=== PATIENT | female | born 1930 | race Asian ===

== ENCOUNTER 2019-04-03 19:16 | Inpatient (IN) | payer MEDICARE, MEDICAID ==
[2019-04-03] MEDS ORDERED: NS 0.9% 1000 ML** 1,000 ML IV.FLUID IV ONE (20:54)
[2019-04-03] MEDS ORDERED: Piperacillin/Tazobac ADVAN(*) 3.375 GM in NS 0.9% 100 ML* 100 ML IVPB ONE (20:54)
[2019-04-03 21:24] LABS: ABS Basophils 0.1 10^3/ul (0-0.2); ABS Lymphocytes 0.3 10^3/ul (1.0-4.8); ABS Monocytes 0.6 10^3/ul (0-0.8); ABS Neutrophils 15.6 10^3/ul (1.5-7.7); Hematocrit 40 % (35-47); Hemoglobin 13.3 g/dL (12.0-16.0); Lymphocyte % 1.9 %; Mean Corpuscular HGB Conc 33 g/dL (31-36); Mean Corpuscular Hemoglobin 30 pg (27-31); Mean Corpuscular Volume 91 fL (80-97); Platelet Count 111 10^3/uL (150-450); Red Blood Count 4.42 10^6 /uL (3.70-4.87); Red Cell Distribution Width 14 % (10-15); White Blood Count 16.7 10^3/uL (3.5-10.8)
--- NOTE | 2019-04-03 21:24 | ED ---
HPI Febrile Illness - HPI Summary HPI Summary: This pt is an 88 y/o female, accompanied by daughter, presenting to [facility] c/o fever since today. Patient does not speak Maori and daughter is translating for the patient. Daughter reports this morning patient ate "very little food" during breakfast and lunch. Patient stated she felt cold today, despite being hot outside, and daughter notes she didn't realize pt had a fever. Daughter took the pt's temperature and it was 37.5 C, but daughter states she only put the thermometer for a short time. Daughter reports they have AC at home but pt does not want to use it as much. Additionally, pt began vomiting today, about 2 episodes of emesis describes as "just food." Denies cough, chest pain, SOB, burning or pain with urination. Pt reports feeling like acid is going up to her chest when palpating her abdomen. Her PCP is in [place]. PMHx includes constipation, osteoporosis, COPD. Pt takes stool softener for constipation. NKDA. Pt is a former doctor. Patient is from [place] and came to the [place] ago. Home Medications Medication Instructions Recorded Confirmed Type Calcitriol CAP* [Rocaltrol CAP*] 0.25 mg PO DAILY 04/03/19 04/03/19 History - History of Current Complaint Chief Complaint: EDFever Time Seen by Provider: 04/03/19 21:04 Hx Obtained From: Patient, Family/Microfilm Processor - Daughter Onset/Duration: Started Hours Ago, Still Present Timing: Lasting Hours Current Severity: Moderate Pain Intensity: 0 Aggravating Factors: Nothing Alleviating Factors: Nothing Associated Signs and Symptoms: Chills, Vomiting, Other: - NEGATIVE: cough, SOB, chest pain, burning or pain with urination. - Allergy/Home Medications Allergies/Adverse Reactions: Allergies Allergy/AdvReac Type Severity Reaction Status Date / Time No Known Allergies Allergy Verified 04/03/19 21:33 Home Medications: Home Medications Calcitriol CAP* [Rocaltrol CAP*] 0.25 mg PO DAILY 04/03/19 [History Confirmed 04/03/19] PMH/Surg Hx/FS Hx/Imm Hx Endocrine/Hematology History: Denies: Hx Diabetes Respiratory History: Reports: Hx Chronic Obstructive Pulmonary Disease (COPD) Musculoskeletal History: Reports: Hx Osteoporosis - Surgical History Surgical History: Yes Surgery Procedure, Year, and Place: Right shoulder replacement. Right leg fracture surgery Infectious Disease History: No Infectious Disease History: Denies: Traveled Outside the [place] in Last 30 Days - Family History Known Family History: Negative: Cardiac Disease - Social History Alcohol Use: None Substance Use Type: Reports: None Smoking Status (MU): Never Smoked Tobacco Review of Systems Positive: Fever, Chills Negative: Chest Pain Negative: Shortness Of Breath, Cough Positive: Vomiting, Nausea Negative: burning, dysuria All Other Systems Reviewed And Are Negative: Yes Physical Exam - Summary Physical Exam Summary: Appearance: Ill-appearing, moderate pain distress, thin. Patient complains of being cold. No tremors or shaking. Skin: Warm, color reflects adequate perfusion, dry Head: Normal Head/Face inspection, atraumatic Eyes: Conjunctiva clear ENT: Normal inspection Neck: Supple, no nodes, no JVD Respiratory: Lungs clear, normal breath sounds, no respiratory distress Cardio: RRR, No murmur, pulses normal, brisk capillary refill Abdomen: Soft, nontender Bowel sounds: Present Musculoskeletal: Strength Intact/ROM intact, no calf tenderness. Trace edema in bilateral legs. Psychological: Normal Neuro: Alert, muscle tone normal, no focal deficit Triage Information Reviewed: Yes Vital Signs On Initial Exam: Initial Vitals Temp Pulse Resp BP Pulse Ox 101.1 F 106 20 174/95 94 04/03/19 19:25 04/03/19 19:25 04/03/19 19:25 04/03/19 19:25 04/03/19 19:25 Vital Signs Reviewed: Yes Diagnostics - Vital Signs Vital Signs Temp Pulse Resp BP Pulse Ox 04/03/19 19:25 101.1 F 106 20 174/95 94 - Laboratory Result Diagrams: 04/03/19 21:15 04/03/19 21:16 Lab Statement: Any lab studies that have been ordered have been reviewed, and results considered in the medical decision making process. - Radiology Chest XR Radiology Interpretation Completed By: ED Physician Summary of Radiographic Findings: No acute disease. Right shoulder replacement. Re-Evaluation - Re-Evaluation First Eval Re-Evaluation Time: 22:01 Change: Unchanged Comment: Discussed plan with family members. They agree to admission and sepsis protocol. No new symptoms. Course/Dx - Course Assessment/Plan: Pt is an 88 y/o female, accompanied by daughter, presenting to [facility] c/o fever since today. Patient does not speak Maori and daughter is translating for the patient. Daughter took the pt's temperature and it was 37.5 C today, but daughter states she only put the thermometer for a short time. Pt began vomiting today, about 2 episodes of emesis describes as "just food.". Pt s medications reviewed this visit. Nurses notes reviewed. High blood pressure noted. Lab results remarkable for WBC of 16.7, glucose is 168, CRP is 103.27. Urinalysis shows 1+ protein, 2+ blood, 3+ leukocyte esterase, 3+ WBC, 3 + RBC, 1+ bacteria. Sepsis protocol was initiated. In the ED course the pt was given IV fluids 30 mL/kg, Zosyn, acetaminophen. Discussed the case with Dr. Willson, hospitalist, who accepted the pt for admission. - Provider Notifications Discussed Care Of Patient With: Malina Willson - hospitalist Time Discussed With Above Provider: 22:10 Instructed by Provider To: Admit As Inpatient - Critical Care Time Critical Care Time: 30-74 min Discharge - Sign-Out/Discharge Documenting (check all that apply): Patient Departure - Admit to [facility] Patient Received Moderate/Deep Sedation with Procedure: No - Discharge Plan Condition: Stable Disposition: ADMITTED TO [facility] Referrals: Dinesh Saravia MD [Primary Care Provider] - - Billing Disposition and Condition Condition: STABLE Disposition: Admitted to [facility] - Attestation Statements Document Initiated by Scribe: Yes Documenting Scribe: Corina You Provider For Whom Scribe is Documenting (Include Credential): Swati Ford MD Scribe Attestation: Corina Brady, scribed for Swati Ford MD on 04/03/19 at 2227. Status of Scribe Document: Viewed
[2019-04-03 21:32] LABS: Activated Partial Thrombo Time 40.1 seconds (26.0-38.0); INR 0.96 (0.82-1.09)
[2019-04-03 21:41] LABS: Albumin/Globulin Ratio 1.4 (1-3); BUN/Creatinine Ratio 35.3 (8-20); C Reactive Protein 103.27 mg/L (<8.01); Calcium 9.6 mg/dL (8.6-10.3); EGFR African American 99.3 (>60); Globulin 2.9 g/dL (2-4); Potassium 3.4 mmol/L (3.5-5.0); Total Bilirubin 1.1 mg/dL (0.2-1.0); Total Protein 6.9 g/dL (6.4-8.9)
[2019-04-03 21:42] LABS: Troponin I 0.01 ng/mL (<0.04)
[2019-04-03 21:50] LABS: Urine Appearance Turbid; Urine Bacteria 1+ (Absent); Urine Bilirubin Negative (Negative); Urine Blood 2+ (Negative); Urine Color Yellow; Urine Glucose Negative (Negative); Urine Ketones Negative (Negative); Urine Nitrite Negative (Negative); Urine Protein 1+(30 mg/dL) (Negative); Urine Red Blood Cell 3+(>10/hpf) (Absent); Urine Specific Gravity 1.012 (1.010-1.030); Urine Urobilinogen Negative (Negative); Urine White Blood Cell 3+(>20/hpf) (Absent)
[2019-04-03] MEDS ORDERED: Acetaminophen TAB* 325 MG PO ONE (21:56)
[2019-04-03 22:30] LABS: Erythrocyte Sed Rate 22 mm/Hr (0-29)
[2019-04-03] MEDS ORDERED: Acetaminophen TAB* 325 MG PO PRN (23:00)
[2019-04-03] MEDS ORDERED: Ondansetron INJ* 2 MG/ML VIAL IV PRN (23:00)
[2019-04-03] MEDS ORDERED: NS 0.9% 1000 ML** 1,000 ML IV SCH (23:00)
[2019-04-03] MEDS ORDERED: Potassium Chlor TAB* 20 MEQ TAB.ER PO ONE (23:50)
[2019-04-04] MEDS: cefTRIAXone(*) 1 GM in NS 0.9% 50 ML* 50 ML IVPB SCH ×2 (01:27→23:24)
[2019-04-04] MEDS: Enoxaparin(*) 40 MG/0.4 ML SYR SUBCUT SCH ×2 (01:29→23:23)
--- NOTE | 2019-04-04 04:52 | HP ---
CC: Dr. Dinesh Saravia * HISTORY AND PHYSICAL: DATE OF ADMISSION: 04/03/19 PROVIDER: Rashawn Ramírez NP ATTENDING PHYSICIAN: Dr. Malina Willson * (dictated by Rashawn Ramírez NP). PRIMARY CARE PROVIDER: Dr. Dinesh Saravia. CHIEF COMPLAINT: Fever. HISTORY OF PRESENT ILLNESS: Ms. Handy is an 88-year-old female who presents to the ER today with concern for fever. Ms. Handy does not speak Hungarian at baseline and utilizes her [id number] to help translate. Per the patient and her daughter- in-law, last evening, Ms. Handy had subjective fever and chills overnight and states that she started to feel colder than usual in the middle of the night. There was also a slight cough, but she does have a history of bronchospasm. She woke up and felt a little bit better, but had poor appetite and ate very little food during breakfast and lunchtime. She continued to endorse feeling cold and chills. Later on during the day, she had 2 episodes of emesis and the qvdrrmod-[id number] checked her temperature and noted that she was very hot and that the temperature was close to 101. It was at that point she was brought her [id number]-[id number] in for further evaluation. There was no noted confusion, dizziness, weakness. Ms. Handy denies any chest pain or shortness of breath. She denies any abdominal pain, nausea, or diarrhea. She denies any hematuria or dysuria or any flank pain. Prior to today, she was feeling at her baseline with no new health concerns or complaints. Here in the ER, Ms. Handy was found to have a fever of 101.1 upon arrival. She had tachycardia and concerns for a white count of 16,700 as well as a CRP of 103 and a UA with bacteria, white blood cells, and leukocyte esterase. Given these findings, Hospital Medicine was consulted for admission. PAST MEDICAL HISTORY: Includes COPD, constipation, osteoporosis, and palpitations. HOME MEDICATIONS: 1. Colace p.r.n. 2. Calcitriol 0.25 mcg daily. 3. Glucosamine chondroitin supplement. ALLERGIES: No known drug allergies. FAMILY HISTORY: Reviewed and noncontributory. SOCIAL HISTORY: She denies any history of tobacco, alcohol, or recreational drug use. 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 She is and lives with her . Her son, Sharon Gregorio, is her surrogate decision maker in the event of emergency. REVIEW OF SYSTEMS: A 12-point review of systems was completed, all pertinent positives and negatives as per HPI. PHYSICAL EXAMINATION GENERAL: This is a mildly ill-appearing, elderly female seen lying in the bed, in no acute distress. VITAL SIGNS: Temperature 98.0, pulse rate 96, respiratory rate 21, blood pressure 142/88, and O2 saturation is 96% on room air. HEENT: Head is atraumatic, normocephalic. Face is symmetrical. Pupils are equal, round, and reactive to light. Extraocular movements are intact. Oral mucosa is somewhat dry, but no oropharyngeal erythema or exudate noted. NECK: Supple with full range of motion. Negative for nuchal rigidity. No JVD noted. No lymphadenopathy appreciated. LUNGS: Clear to auscultation bilaterally. CARDIAC: Normal S1 and S2. Heart sounds with regular rate and rhythm. No murmurs appreciated. There is trace bilateral lower extremity edema that is not pitting to the bilateral lower extremities. ABDOMEN: Soft, nontender, nondistended with normoactive bowel sounds. There is no rebound tenderness or guarding. There is no CVA tenderness. There is no suprapubic tenderness. MUSCULOSKELETAL: No clubbing or cyanosis. There is full range of motion in all 4 extremities. SKIN: Appears warm, dry, and intact. NEURO: She is alert and oriented to person, place, time, and situation. Responds appropriately. Follows commands. No focal deficits noted. LABORATORY DATA/DIAGNOSTIC STUDIES: CBC: WBC 16.7, hemoglobin 13.3, hematocrit 40, platelet count 111. ESR is 22. CMP: Sodium 134, potassium 3.4 , chloride 102, carbon dioxide 25, BUN 24, creatinine 0.68, glucose 68, lactic acid 0.9, calcium 9.6. Total bilirubin 1.10, AST 20, ALT 12, alk phos 49. Total CK 50, troponin 0.01. CRP 103.27. BNP 103. Albumin 4.0. Urinalysis shows 1+ protein, 2+ blood, negative nitrite, 3+ leukocyte esterase, 3+ wbc's, 3+ rbc's, and 1+ bacteria. Chest x-ray reviewed by this provider, no acute disease noted in the lung lamb. EKG reviewed shows sinus rhythm with some premature atrial complexes, but no significant ischemic changes. Old medical records were reviewed. ASSESSMENT AND PLAN: This is an 88-year-old female who presents today with concern for fever, possibly secondary to urinary source. She will be admitted under observation status and plan is as follows: 1. Urinary tract infection. Ms. Handy presents with a fever and concern for bacteria, leukocyte esterase in her urine. She received Zosyn in the ER. We will continue her on ceftriaxone until her culture results. 2. Sepsis. Ms. Handy meets sepsis diagnosis by SIRS criteria on admission with her 101.1 fever, tachycardia with rates in the 100s, increased respiratory rate of 22 to 33, [place] [address]. For qSOFA criteria, she meets criteria for sepsis by total bilirubin which is 1.1 as well as her platelet count which is 111. Based on the SIRS and SOFA criteria, she meets for sepsis protocol. She has been appropriately started on a broad-spectrum antibiotic, which we will narrow down to ceftriaxone for suspected urinary pathogen. She has received 1.5 L of fluid. Blood cultures have been ordered and drawn, results are pending. There is no lactic acidosis. We will continue to monitor the patient's response and adjust the plan of care appropriately. 2. History of constipation. Continue Colace. 3. History of osteoporosis. Continue Calcitriol. 4. FEN. She is ordered a regular diet. 5. DVT prophylaxis. Subcu Lovenox for a highest level of DVT risk assessment. 6. Code status: Full code. 7. Disposition: Anticipate discharge to home when medically stable. TIME SPENT: Approximately 60 minutes was spent on this admission with more than half the time spent [id number] with the patient obtaining history and physical, performing the physical examination, and reviewing the plan of care. Plan of care was also reviewed with my attending, Dr. Willson, who is in agreement. RASHAWN RAMÍREZ, AWAIS [id number]/[facility] #: [id number] JERRELL
[2019-04-04] MEDS ORDERED: Calcitriol CAP* 0.25 MCG PO SCH (09:00)
[2019-04-04] MEDS: Docusate CAP* 100 MG PO SCH (09:05)
[2019-04-04] MEDS: Calcitriol CAP* 0.25 MCG PO SCH (09:05)
[2019-04-04 09:10] LABS: Hematocrit 37 % (35-47); Mean Corpuscular HGB Conc 33 g/dL (31-36); Mean Corpuscular Hemoglobin 30 pg (27-31); Mean Corpuscular Volume 91 fL (80-97); Red Blood Count 4.02 10^6 /uL (3.70-4.87); Red Cell Distribution Width 13 % (10-15); White Blood Count 22.7 10^3/uL (3.5-10.8)
[2019-04-04 09:21] LABS: Albumin 3.4 g/dL (3.2-5.2); Calcium 8.9 mg/dL (8.6-10.3); Potassium 3.9 mmol/L (3.5-5.0); Total Bilirubin 0.8 mg/dL (0.2-1.0)
[2019-04-04 09:27] LABS: Albumin/Globulin Ratio 1.3 (1-3); EGFR African American 92.9 (>60); EGFR Non-African American 76.8 (>60); Globulin 2.7 g/dL (2-4); Total Protein 6.1 g/dL (6.4-8.9)
[2019-04-04 09:34] LABS: ABS Lymphocytes 0.8 10^3/ul (1.0-4.8); ABS Monocytes 0.8 10^3/ul (0-0.8); ABS Neutrophils 21.1 10^3/ul (1.5-7.7); Lymphocyte % 3.5 %; Mean Platelet Volume 7.6 fL (7.4-10.4); Platelet Count 96 10^3/uL (150-450)
[2019-04-04 10:22] LABS: TSH (Thyroid Stimulating Horm) 0.24 mcIU/mL (0.34-5.60)
--- NOTE | 2019-04-04 11:25 | PN ---
Subjective Date of Service: 04/04/19 Interval History: Patient is feeling somewhat tired today. Patient denies Fevers, but endorses chills. Patient denies dysuria, CP, SOB, N/V, abdominal pain, diarrhea. Patient has no history of UTI per daughter. History was obtained with daughter interpreting. Family History: Unchanged from Admission Social History: Unchanged from Admission Past Medical History: Unchanged from Admission Objective Active Medications: Acetaminophen (Tylenol Tab*) 650 mg PO Q4H PRN PRN Reason: FEVER/PAIN Last Admin: 04/04/19 01:47 Dose: 650 mg Calcitriol (Rocaltrol Cap*) 0.25 mcg PO DAILY [facility] Last Admin: 04/04/19 09:05 Dose: 0.25 mcg Docusate Sodium (Colace Cap*) 100 mg PO DAILY [facility] Last Admin: 04/04/19 09:05 Dose: 100 mg Enoxaparin Sodium (Lovenox(*)) 40 mg SUBCUT Q24H [facility] Last Admin: 04/04/19 01:29 Dose: 40 mg Ceftriaxone Sodium 1 gm/ (Sodium Chloride) 50 mls @ 100 mls/hr IVPB Q24H [facility] Last Admin: 04/04/19 01:27 Dose: 100 mls/hr Ondansetron HCl (Zofran Inj*) 4 mg IV Q6H PRN PRN Reason: NAUSEA/VOMITING Vital Signs - 8 hr 04/04/19 04/04/19 04/04/19 03:58 07:00 07:15 Temperature 97.3 F 98.8 F 98.8 F Pulse Rate 82 73 73 Respiratory 20 22 22 Rate Blood Pressure 121/61 133/68 133/68 (mmHg) O2 Sat by Pulse 96 98 98 Oximetry 04/04/19 08:00 Temperature Pulse Rate Respiratory 22 Rate Blood Pressure (mmHg) O2 Sat by Pulse 98 Oximetry Oxygen Devices in Use Now: None Appearance: Patient is an 88yo female who appears stated age and is sitting in the bed in [facility]. Eyes: No Scleral Icterus, PERRLA Ears/Nose/Mouth/Throat: NL Teeth, Lips, Gums, Clear Oropharnyx, Mucous Membranes Moist Neck: NL Appearance and Movements; NL JVP, Trachea Midline Respiratory: Symmetrical Chest Expansion and Respiratory Effort, Clear to Auscultation Cardiovascular: NL Sounds; No Murmurs; No JVD, RRR, No Edema Abdominal: NL Sounds; No Tenderness; No Distention, No Hepatosplenomegaly Lymphatic: No Cervical Adenopathy Extremities: No Edema, No Clubbing, Cyanosis Skin: No Rash or Ulcers, No Nodules or Sclerosis Neurological: Alert and Oriented x 3, NL Sensation, NL Muscle Strength and Tone , - - CN II-XII intact. Result Diagrams: 04/04/19 08:08 04/04/19 08:08 Microbiology and Other Data: Microbiology 04/03/19 21:15 Anaerobic Blood Culture - Preliminary Blood Venous 04/03/19 21:15 Anaerobic Blood Culture - Preliminary Blood Venous Assess/Plan/Problems-Billing Assessment: Patient is an 88yo female with a PMH for COPD, here with sepsis related to a likely UTI and bacteremia who is subjectively improving on antibiotics. - Patient Problems (1) Sepsis Current Visit: Yes Status: Acute Comment: - Patient has sepsis with Leukocytosis, Fever, tachycardia - No initial hypotension - Improving clinically on antibiotics. (2) Bacteremia Current Visit: Yes Status: Acute Code(s): R78.81 - BACTEREMIA SNOMED Code( s): 2642297 Comment: - 2/4 BC bottles for GNB - Likely urinary source - Awaiting C/S - Patient frail at at high risk for decompensation. (3) UTI (urinary tract infection) Current Visit: Yes Status: Acute Comment: - Likely source of sepsis, asymptomatic, culture pending. (4) COPD (chronic obstructive pulmonary disease) Current Visit: Yes Status: Acute Code(s): J44.9 - CHRONIC OBSTRUCTIVE PULMONARY DISEASE, UNSPECIFIED SNOMED Code(s): 41705686 Comment: - Mild, not in acute exacerbation - PRN nebulizers. (5) DVT prophylaxis Current Visit: Yes Status: Acute Code(s): Z29.9 - ENCOUNTER FOR PROPHYLACTIC MEASURES, UNSPECIFIED SNOMED Code(s): 020145404 Comment: - Lovenox SubQ (6) Full code status Current Visit: Yes Status: Acute Code(s): Z78.9 - OTHER SPECIFIED HEALTH STATUS SNOMED Code(s): 306573958 Status and Disposition: Inpatient for sepsis and bacteremia.
[2019-04-04] MEDS ORDERED: Albuterol 2.5 MG/3 ML NEB.SOL* (0.083%) INH PRN (11:32)
[2019-04-04 12:58] LABS: T4, Total 6.83 mcg/dL (6.09-12.23)
[2019-04-05 06:49] LABS: ABS Lymphocytes 0.6 10^3/ul (1.0-4.8); ABS Monocytes 0.7 10^3/ul (0-0.8); ABS Neutrophils 13.5 10^3/ul (1.5-7.7); Hematocrit 34 % (35-47); Hemoglobin 11.8 g/dL (12.0-16.0); Lymphocyte % 4.1 %; Mean Corpuscular HGB Conc 34 g/dL (31-36); Mean Corpuscular Hemoglobin 31 pg (27-31); Mean Corpuscular Volume 90 fL (80-97); Mean Platelet Volume 8.1 fL (7.4-10.4); Platelet Count 83 10^3/uL (150-450); Red Blood Count 3.81 10^6 /uL (3.70-4.87); Red Cell Distribution Width 14 % (10-15); White Blood Count 14.8 10^3/uL (3.5-10.8)
[2019-04-05 06:59] LABS: BUN/Creatinine Ratio 24.2 (8-20); Calcium 8.2 mg/dL (8.6-10.3); EGFR African American 110.4 (>60); EGFR Non-African American 91.3 (>60); Magnesium 1.9 mg/dL (1.9-2.7); Potassium 3.2 mmol/L (3.5-5.0)
[2019-04-05] MEDS: Docusate CAP* 100 MG PO SCH (08:54)
[2019-04-05] MEDS: Calcitriol CAP* 0.25 MCG PO SCH (08:55)
[2019-04-05] MEDS: KCL 20 MEQ/100 ML IVPREMIX* 20 MEQ/100 ML BAG IV SCH ×2 (10:49→15:48)
[2019-04-05] MEDS ORDERED: Polyethylene Glycol 3350* 17 GM PACKET PO PRN (10:57)
--- NOTE | 2019-04-05 12:55 | PN ---
Subjective Date of Service: 04/05/19 Interval History: Patient's son at bedside to translate as patient speaks only Mandarin. She denies abd pain, dysuria, fever/chills, chest pain, difficulty breathing. Patient's son reports she has been feeling cold intermittently but endorses she feels this way at home as well. Family History: Unchanged from Admission Social History: Unchanged from Admission Past Medical History: Unchanged from Admission Objective Active Medications: Acetaminophen (Tylenol Tab*) 650 mg PO Q4H PRN PRN Reason: FEVER/PAIN Last Admin: 04/04/19 01:47 Dose: 650 mg Albuterol (Ventolin 2.5 Mg/3 Ml Neb.Kait*) 2.5 mg INH Q4H PRN PRN Reason: SOB/WHEEZING Calcitriol (Rocaltrol Cap*) 0.25 mcg PO DAILY [facility] Last Admin: 04/05/19 08:55 Dose: 0.25 mcg Docusate Sodium (Colace Cap*) 100 mg PO DAILY [facility] Last Admin: 04/05/19 08:54 Dose: 100 mg Enoxaparin Sodium (Lovenox(*)) 40 mg SUBCUT Q24H [facility] Last Admin: 04/04/19 23:23 Dose: 40 mg Ceftriaxone Sodium 1 gm/ (Sodium Chloride) 50 mls @ 100 mls/hr IVPB Q24H [facility] Last Admin: 04/04/19 23:24 Dose: 100 mls/hr Potassium Chloride (Potassium Chloride 20 Meq/100 Ml Ivpremix*) 20 meq in 100 mls @ 50 mls/hr IV Q2H [facility] Stop: 04/05/19 13:59 Last Admin: 04/05/19 10:49 Dose: 50 mls/hr Ondansetron HCl (Zofran Inj*) 4 mg IV Q6H PRN PRN Reason: NAUSEA/VOMITING Polyethylene Glycol/Electrolytes (Miralax*) 17 gm PO DAILY PRN PRN Reason: CONSTIPATION Last Admin: 04/05/19 12:02 Dose: 17 gm Vital Signs - 8 hr 04/05/19 04/05/19 07:15 08:00 Temperature 98.1 F Pulse Rate 86 Respiratory 16 16 Rate Blood Pressure 151/79 (mmHg) O2 Sat by Pulse 95 Oximetry Oxygen Devices in Use Now: None Appearance: Thin, elderly woman laying in hospital bed appearing in NAD Eyes: No Scleral Icterus, PERRLA Ears/Nose/Mouth/Throat: Mucous Membranes Moist Neck: NL Appearance and Movements; NL JVP Respiratory: Symmetrical Chest Expansion and Respiratory Effort, - - Faint bibasilar crackles Abdominal: - - abdomen soft, nontender, nondistended; no suprapubic tenderness Extremities: No Edema, No Clubbing, Cyanosis Skin: No Rash or Ulcers Neurological: Alert and Oriented x 3, NL Muscle Strength and Tone Result Diagrams: 04/05/19 06:16 04/05/19 06:16 Microbiology and Other Data: Microbiology 04/03/19 21:15 Anaerobic Blood Culture - Preliminary Blood Venous 04/03/19 21:15 Anaerobic Blood Culture - Preliminary Blood Venous Assess/Plan/Problems-Billing Assessment: Patient is an 88yo female with a PMH for COPD, here with urosepsis and associated bacteremia, improving on ceftriaxone - Patient Problems (1) UTI (urinary tract infection) Current Visit: Yes Status: Acute Comment: -Culture demonstrates E. coli sensitive to cipro and ceftriaxone -appears to be source of bacteremia and sepsis; signs of sepsis now resolved -continue ceftriaxone for now as patient is improving -has been afebrile >24 hrs, leukocytosis is downtrending but WBC still 14.8 (2) Bacteremia Current Visit: Yes Status: Acute Code(s): R78.81 - BACTEREMIA SNOMED Code( s): 0664738 Comment: - blood culture positive for E. coli, S&S pending but likely will match S&S of urine culture - Patient frail at at high risk for decompensation. Nursing reports patient is able to get out of bed (3) Hypokalemia Current Visit: Yes Status: Acute Code(s): E87.6 - HYPOKALEMIA SNOMED Code( s): 87108372 Comment: -K to 3.2 this morning -replacing with IV KCl (4) COPD (chronic obstructive pulmonary disease) Current Visit: Yes Status: Acute Code(s): J44.9 - CHRONIC OBSTRUCTIVE PULMONARY DISEASE, UNSPECIFIED SNOMED Code(s): 58306289 Comment: - Mild, not in acute exacerbation - PRN nebulizers - bilateral lung base crackles today likely related to atelectasis, ordered incentive spirometry (5) Hyperglycemia Current Visit: Yes Status: Acute Code(s): R73.9 - HYPERGLYCEMIA, UNSPECIFIED SNOMED Code(s): 49984743 Comment: -patient has been consistently hyperglycemic in AM during hospital stay -HA1c 6.4%, patient would benefit from close follow up and limiting carbs (6) DVT prophylaxis Current Visit: Yes Status: Acute Code(s): Z29.9 - ENCOUNTER FOR PROPHYLACTIC MEASURES, UNSPECIFIED SNOMED Code(s): 287264353 Comment: - Lovenox SubQ (7) Full code status Current Visit: Yes Status: Acute Code(s): Z78.9 - OTHER SPECIFIED HEALTH STATUS SNOMED Code(s): 410874608 Status and Disposition: Inpatient for sepsis and bacteremia. Likely d/c tomorrow
[2019-04-05] MEDS: cefTRIAXone(*) 1 GM in NS 0.9% 50 ML* 50 ML IVPB SCH (22:49)
[2019-04-05] MEDS: Enoxaparin(*) 40 MG/0.4 ML SYR SUBCUT SCH (22:50)
[2019-04-06 06:03] LABS: ABS Eosinophils 0.1 10^3/ul (0-0.6); ABS Lymphocytes 0.7 10^3/ul (1.0-4.8); ABS Monocytes 0.9 10^3/ul (0-0.8); ABS Neutrophils 7.9 10^3/ul (1.5-7.7); Hematocrit 36 % (35-47); Lymphocyte % 7.5 %; Mean Corpuscular HGB Conc 34 g/dL (31-36); Mean Corpuscular Hemoglobin 30 pg (27-31); Mean Corpuscular Volume 90 fL (80-97); Mean Platelet Volume 7.7 fL (7.4-10.4); Platelet Count 94 10^3/uL (150-450); Red Blood Count 3.96 10^6 /uL (3.70-4.87); Red Cell Distribution Width 14 % (10-15); White Blood Count 9.6 10^3/uL (3.5-10.8)
[2019-04-06 06:21] LABS: BUN/Creatinine Ratio 20.7 (8-20); Calcium 8.1 mg/dL (8.6-10.3); EGFR African American 119.3 (>60); EGFR Non-African American 98.6 (>60); Potassium 3.4 mmol/L (3.5-5.0)
[2019-04-06 08:13] VITALS: BP 152/79
[2019-04-06] MEDS: Docusate CAP* 100 MG PO SCH (08:20)
[2019-04-06] MEDS: Calcitriol CAP* 0.25 MCG PO SCH (08:20)
[2019-04-06] MEDS ORDERED: Simethicone TAB* 80 MG TAB.CHEW PO ONE (09:58)
[2019-04-06] MEDS ORDERED: Senna TAB PO ONE (09:59)
[2019-04-06] MEDS ORDERED: Potassium Chlor TAB* 20 MEQ TAB.ER PO ONE (10:02)
--- NOTE | 2019-04-06 13:53 | DS ---
CC: Dr. Saravia * DATE OF ADMISSION: 04/03/2019. DATE OF DISCHARGE: 04/06/2019. PRIMARY CARE PHYSICIAN: Dr. Saravia. ATTENDING PHYSICIAN WHILE IN HOSPITAL: Dr. Gloria Dykes * (dictated by VENTURA Malik). PRIMARY DIAGNOSES: 1. Sepsis secondary to a urinary tract infection, sepsis resolved. 2. E. coli bacteremia. SECONDARY DIAGNOSES: 1. COPD. 2. Osteoarthritis. 3. Constipation. 4. Possible history of palpitations. PERTINENT LAB DATA: Urine culture growing E. coli sensitive to Ceftriaxone and Ciprofloxacin, resistant to Bactrim, Ampicillin and Cefazolin. Blood culture with the same bacterial growth. Potassium on 04/05/2019 3.2, potassium on 04/06/2019 3.4. Hemoglobin A1c 6.4. HISTORY OF PRESENT ILLNESS/HOSPITAL COURSE: Ms. Handy is an 88-year-old female with a past medical history significant for COPD, osteoarthritis, constipation, and possibly history of palpitations who presented to the emergency department on 04/03/2019 due to fever. Please see admitting history and physical dictated by Yara Davis NP on 04/03/2019 for further information. She was found to have a temperature of 100.1 on her arrival and she was having a poor appetite. During her hospital stay, she did continue to have a fever until the second day of admission and ultimately upon the date of discharge she was afebrile for 48 hours. She initially had leukocytosis which then resolved by the date of discharge. During her stay, she was consistent hyperglycemic, so I checked her hemoglobin A1c which was found to be elevated to 6.4. Additionally, at times she was found to be hypokalemic, but resolved to repletion and was likely due to high volume of normal saline in the setting of her sepsis. She was originally diagnosed with sepsis due to her tachycardia and her leukocytosis and later these signs resolved. On the day of discharge, the patient is feeling well and her main complaint is some abdominal discomfort. The patient, according her daughter who translates, is very fixated upon having a bowel movement every day and is frustrated with not having had a bowel movement yet today, otherwise denies abdominal pain, nausea, vomiting, difficulty urinating, chest pain, fever or chills, dysuria, hematorrhea. The patient was treated with IV Ceftriaxone daily and had good response. PHYSICAL EXAMINATION: Thin, elderly, female lying in the hospital bed. Her daughter is at the bedside who is translating. HEENT: Eyes: PERRLA, sclerae anicteric. Mucus membranes are moist. Neck: Supple without JVD. Lungs: Clear to auscultation throughout. Cardia: Regular rate and rhythm without murmurs, rubs, or gallops. Abdomen: Soft, nontender, nondistended without hepatosplenomegaly. No suprapubic or tenderness. Extremities: No clubbing, cyanosis or edema. Neuro: The patient is alert and oriented times three. No focal deficits. Speech is clear. Skin: Warm, dry, and intact. DISCHARGE PLAN: The patient was advised to follow-up with her primary care provider in seven to ten days at this time and recommended to have a follow-up BMP as the patient did have hypokalemia frequently during her hospital stay, though this is likely due to fluid repletion. It is recommended that her primary care provider follow-up regarding her elevated hemoglobin A1c and perhaps discuss consistent carbohydrate diet; however, given her age, a hemoglobin A1c of 6.4 is reasonable and at goal. The patient was set up with visiting nurses services per suggestion of the patient's daughter with whom she lives. DIET: Regular, unrestricted diet. ACTIVITY: Patient may return to normal activity as tolerated. The patient was advised to return to the emergency department if she is experiencing fever or chills, hematuria, low back pain, and dysuria. DISCHARGE MEDICATIONS: Cefdinir 300 mg p.o. b.i.d. times 12 days. CONTINUED HOME MEDICATIONS: 1. Docusate 100 mg p.o. daily. 2. Calcitriol 0.25 mcg p.o. daily. 3. Glucosamine Chondroitin supplement. CONDITION ON DISCHARGE: Stable. DISPOSITION: To home. TIME SPENT: Approximately 30 minutes were spent on this discharge, half of this time was spent at the bedside. VENTURA MALIK [id number]/[facility] #: [id number] [facility]ITALAmy
== END 2019-04-06 12:15 | disposition home health service (06) | DRG 872 ==
LOC: ED 19:16 → MED 23:00 → OBSVTOIN 04-04 10:51
PROVIDERS: ADMIT Internal Medicine; ATTEND Internal Medicine
DX: A41.51 Sepsis due to Escherichia coli [E. coli] (principal); N39.0 Urinary tract infection, site not specified; B96.20 Unspecified Escherichia coli [E. coli] as the cause of diseases classified elsewhere; J44.9 Chronic obstructive pulmonary disease, unspecified; M19.90 Unspecified osteoarthritis, unspecified site; K59.00 Constipation, unspecified; E87.6 Hypokalemia; R73.9 Hyperglycemia, unspecified; Z79.899 Other long term (current) drug therapy
CPT/HCPCS: 36415; 71045; 80048; 80053; 81003; 81015; 82550; 83036; 83605; 83735; 83880; 84436; 84443; 84479; 84484; 85025; 85060; 85610; 85652; 85730; 86140; 87040; 87077; 87086; 87186; 87205; 93005; 99284; A9270-GY; J0696; J1650; J2405; J2543; J3480

== ENCOUNTER 2019-12-16 11:31 | Observation (INO) | payer MEDICARE, MEDICAID ==
--- NOTE | 2019-12-16 12:19 | ED ---
Adult Trauma - HPI Summary HPI Summary: This patient is an 89 year old female presenting to [facility] with a chief complaint after a possible fall and UTI rule out. She was brought in by daughter to r/o UTI, daughter reports fever. Patient appears to have pain to right hip Patient non-citizen of [place] speaking. Patient having difficulty communication through knockout machine operator service. No information available at this time. Patient is a level 5 caveat due to language barrier. - History of Current Complaint Stated Complaint: FALL INJ PER DAUGHTER Time Seen by Provider: 12/16/19 11:34 Hx Obtained From: Chief Environmental Commitment Officer Hx From Patient Unobtainable Due To: Other - Language barrier Mechanism of Injury: Fall - Additional Pertinent History Primary Care Physician: [id number] - Allergy/Home Medications Allergies/Adverse Reactions: Allergies Allergy/AdvReac Type Severity Reaction Status Date / Time No Known Allergies Allergy Verified 04/03/19 21:33 Home Medications: Home Medications Calcitriol CAP* [Rocaltrol CAP*] 0.25 mcg PO DAILY 04/03/19 [History Confirmed 12/16/19] Acetaminophen TAB* [Tylenol TAB*] 650 mg PO Q4H PRN 12/16/19 [History Confirmed 12/16/19] Calcium Carbonate/Vitamin D3 [Calcium 600+D High Potenc] 1 tab PO BID 12/16/19 [ History Confirmed 12/16/19] Fluocinonide 0.05% CM (NF) [Lidex 0.05% CREAM (NF)] 1 applic TOPICAL BID PRN [History Confirmed 12/16/19] Multivitamins/Minerals TAB* [Theragran/minerals TAB*] 1 tab PO DAILY 12/16/19 [ History Confirmed 12/16/19] PMH/Surg Hx/FS Hx/Imm Hx Endocrine/Hematology History: Denies: Hx Diabetes Respiratory History: Reports: Hx Chronic Obstructive Pulmonary Disease (COPD) Musculoskeletal History: Reports: Hx Osteoporosis Sensory History: Denies: Hx Contacts or Glasses, Hx Hearing Aid Opthamlomology History: Denies: Hx Contacts or Glasses - Surgical History Surgery Procedure, Year, and Place: Right shoulder replacement. Right leg fracture surgery Infectious Disease History: Denies: Traveled Outside the [place] in Last 30 Days - Family History Known Family History: Negative: Cardiac Disease - Social History Alcohol Use: None Substance Use Type: Reports: None Smoking Status (MU): Never Smoked Tobacco - Additional Comments History Additional Comments: PMHx is a level 5 caveat due to language barrier and failed interpretation Review of Systems - ROS Summary Review of Systems Summary: Patient is a level 5 caveat due to language barrier and unsuccessful interpretation. Positive: Fever Positive: Other - Hip pain All Other Systems Reviewed And Are Negative: No Physical Exam - Summary Physical Exam Summary: Constitutional: Well-developed, Well-nourished, Alert, Cooperative Skin: Warm, Dry HENT: Normocephalic; No Racoons eyes; No hdez's sign; No abrasion; No contusion; No hemotympanum; No maxilla facial tenderness or instability; Dentition are smooth; No dental trauma; No trismus Eyes: EOM normal, PERRL Neck: Trachea is midline. No stridor; No JVD; No step off; No posterior cervical spine tenderness Cardio: Rhythm regular, rate normal; Heart sounds normal; Intact distal pulses; The pedal pulses are 2+ and symmetric. Radial pulses are 2+ and symmetric. Pulmonary/Chest wall: Effort normal; Breath sounds normal; Equal chest rise; No flail segment; No rib tenderness; No sternal tenderness Abd: Soft, Appearance normal. No distension; No tenderness; No palpable pulsatile mass; No Cullens sign; No Thompson-Turners sign Musculoskeletal: Full ROM and no tenderness at ankles, shoulders, elbows and knees; No joint swelling; No vertebral body tenderness; No paraspinal tenderness ; No step off or deformity of the spine; Pelvis is stable to lateral compression and rock. Right hip pain on palpation. No gross deformity. Good pedal pulses. Neuro: Alert, Oriented x3, Strength 5/5 all extremities. No focal deficits. Patient making good eye contact, but unable to communicate secondary to language barrier. : No blood at urethral meatus Psych: Mood and affect Normal Triage Information Reviewed: Yes Vital Signs On Initial Exam: Temp Pulse Resp BP Pulse Ox 98.8 F 100 16 151/98 96 12/16/19 12:10 12/16/19 12:10 12/16/19 12:10 12/16/19 12:10 12/16/19 12:10 Vital Signs Reviewed: Yes Procedures - Sedation Patient Received Moderate/Deep Sedation with Procedure: No Diagnostics - Laboratory Result Diagrams: 12/16/19 14:17 12/16/19 14:17 Lab Statement: Any lab studies that have been ordered have been reviewed, and results considered in the medical decision making process. - Radiology RIGHT HIP/PELVIS X-RAY Radiology Interpretation Completed By: Radiologist Summary of Radiographic Findings: IMPRESSION: 1. NONDISPLACED FRACTURE THROUGH THE RIGHT ACETABULUM. 2. OSTEOPENIA. 3. OSTEOARTHRITIS. 4. POST SURGICAL CHANGE WITH PERIPROSTHETIC LUCENCY CONCERNING FOR LOOSENING OF THE RIGHT. FEMUR INTERNAL FIXATION DEVICE. THIS REPORT WAS REVIEWED BY ED PHYSICIAN. CXR Radiology Interpretation Completed By: Radiologist Summary of Radiographic Findings: IMPRESSION: #. Stigmata of obstructive lung disease and probable pulmonary arterial hypertension. #. No acute cardiopulmonary process evident. THIS REPORT WAS REVIEWED BY ED PHYSICIAN. - CT PELVIC CT CT Interpretation Completed By: Radiologist Summary of CT Findings: IMPRESSION: Foreshortening of the neck of the right humerus. Fracture of the superior. pubic rami just as it joins the ilium. No definite intra-articular fracture is noted. There is also nondisplaced fracture through the inferior pubic ramus. THIS REPORT WAS REVIEWED BY ED PHYSICIAN. - EKG 1408 Cardiac Rate: NL - rate of 91 BPM EKG Rhythm: Sinus Rhythm Summary of EKG Findings: EKG showed sinus rhythm with rate of 91 BPM, no ischemic changes. ED physician has reviewed and interpreted this EKG. Re-Evaluation - Re-Evaluation First Eval Re-Evaluation Time: 14:03 Comment: Daughter notes that the patient has had a prior right hip surgery approximately ten years ago back home in [place]. Adult Trauma Course/Dx - Course Course Of Treatment: This patient is an 89 year old female presenting to [facility] with a chief complaint after a possible fall and UTI rule out. She was brought in by daughter to r/o UTI, daughter reports fever. Patient appears to have pain to right hip Patient non-citizen of [place] speaking. Patient having difficulty communication through knockout machine operator service. No information available at this time. Physical exam reveals Right hip pain on palpation. No gross deformity. Good pedal pulses. UA showed urine with turbid appearance; 1+ protein, trace ketones, 2+ blood, urobilinogen positive, trace leukocyte esterase, trace WBC, 2 + RBC, squamous epith cells, ascorbic acid and amorphous crystals present. RIGHT HIP/PELVIS X-RAY IMPRESSION: 1. NONDISPLACED FRACTURE THROUGH THE RIGHT ACETABULUM. 2. OSTEOPENIA. 3. OSTEOARTHRITIS. 4. POST SURGICAL CHANGE WITH PERIPROSTHETIC LUCENCY CONCERNING FOR LOOSENING OF THE RIGHT. FEMUR INTERNAL FIXATION DEVICE. Daughter notes that the patient has had a prior right hip surgery approximately ten years ago back home in [place]. EKG showed sinus rhythm with rate of 91 BPM, no ischemic changes. 1419 - Patient's case was discussed with mookie Smith, Dr. Lawrence requests CT pelvis. CT PELVIS IMPRESSION: Foreshortening of the neck of the right humerus. Fracture of the superior. pubic rami just as it joins the ilium. No definite intra-articular fracture is noted. There is also nondisplaced fracture through the inferior pubic ramus. CXR IMPRESSION: #. Stigmata of obstructive lung disease and probable pulmonary arterial hypertension. #. No acute cardiopulmonary process evident. Bloodwork was obtained. Trop was 0.04. Other abnormal values include MPV 7.2, absolute neuts 9.1, absolute lymphs 0.5, potassium 3.4, BUN/creatinine ratio 27.4, glucose 131. During ED course, patient received fluids. 1540 - CT reviewed and discussed with Dr. Lawrence. Dr. Lawrence recommends non-operative treatment and [place] [facility] [place] - Patient's case was discussed with Dr. Melvin, Dr. Melvin accepts for admission. - Diagnoses Provider Diagnoses: Right acetabular fracture - Physician Notifications Discussed Care Of Patient With: Adolph Lawrence Time Discussed With Above Provider: 14:19 Instructed by Provider To: Other - 141 - Patient's case was discussed with mookie Smith Dr. Waters requests CT pelvis. 1540 - CT reviewed and discussed with Dr. Lawrence. Dr. Lawrence recommends non-operative treatment and [place] [facility] [place] - Patient's case was discussed with Dr. Melvin, Dr. Melvin accepts for admission. Discharge ED - Sign-Out/Discharge Documenting (check all that apply): Patient Departure - admit - Discharge Plan Condition: Stable Disposition: ADMITTED TO [facility] Referrals: Dinesh Saravia MD [Primary Care Provider] - - Billing Disposition and Condition Condition: STABLE Disposition: Admitted to [facility] - Attestation Statements Document Initiated by Scribe: Yes Documenting Scribe: Adolph Glass and Rolando Rose Provider For Whom Scribe is Documenting (Include Credential): Perry Araiza, DO Scribe Attestation: I, Adolph Glass and Rolando Rose, scribed for Perry Araiza DO on at 1738. Scribe Documentation Reviewed: Yes Provider Attestation: The documentation as recorded by the scribe, Adolph Glass and Rolando Rose accurately reflects the service I personally performed and the decisions made by me, Perry Araiza DO Status of Scribe Document: Viewed
[2019-12-16 12:58] LABS: Urine Appearance Turbid; Urine Bilirubin Negative (Negative); Urine Blood 2+ (Negative); Urine Color Amber; Urine Glucose Negative (Negative); Urine Ketones Trace (Negative); Urine Nitrite Negative (Negative); Urine Protein 1+(30 mg/dL) (Negative); Urine Specific Gravity 1.011 (1.010-1.030); Urine Urobilinogen Positive (Negative)
[2019-12-16 13:01] LABS: Urine Bacteria Absent (Absent); Urine Red Blood Cell 2+(6-10/hpf) (Absent); Urine Squamous Epithelial Cell Present (Absent); Urine White Blood Cell Trace(0-5/hpf) (Absent)
[2019-12-16] MEDS ORDERED: NS 0.9% 1000 ML** 1,000 ML IV ONE ×2 (14:03→14:04)
[2019-12-16 14:36] LABS: ABS Lymphocytes 0.5 10^3/ul (1.0-4.8); ABS Monocytes 0.5 10^3/ul (0-0.8); ABS Neutrophils 9.1 10^3/ul (1.5-7.7); Eosinophil % 0.1 %; Hematocrit 40 % (35-47); Hemoglobin 13.6 g/dL (12.0-16.0); Lymphocyte % 4.5 %; Mean Corpuscular HGB Conc 34 g/dL (31-36); Mean Corpuscular Hemoglobin 31 pg (27-31); Mean Corpuscular Volume 90 fL (80-97); Mean Platelet Volume 7.2 fL (7.4-10.4); Platelet Count 150 10^3/uL (150-450); Red Blood Count 4.38 10^6 /uL (3.70-4.87); Red Cell Distribution Width 14 % (10-15); White Blood Count 10.1 10^3/uL (3.5-10.8)
[2019-12-16 14:41] LABS: Activated Partial Thrombo Time 36.3 seconds (26.0-38.0); INR 0.93 (0.82-1.09)
[2019-12-16 14:52] LABS: ALT 11 U/L (7-52); AST 18 U/L (13-39); Albumin 4.1 g/dL (3.2-5.2); Albumin/Globulin Ratio 1.3 (1-3); Alkaline Phosphatase 43 U/L (34-104); Anion Gap 7 mmol/L (2-11); BUN/Creatinine Ratio 27.4 (8-20); Blood Urea Nitrogen 17 mg/dL (6-24); CO2 Carbon Dioxide 27 mmol/L (22-32); Calcium 9.4 mg/dL (8.6-10.3); Chloride 101 mmol/L (101-111); EGFR African American 110.2 (>60); EGFR Non-African American 91.1 (>60); Globulin 3.2 g/dL (2-4); Glucose 131 mg/dL (70-100); Potassium 3.4 mmol/L (3.5-5.0); Sodium 135 mmol/L (135-145); Total Protein 7.3 g/dL (6.4-8.9)
[2019-12-16 14:58] LABS: Troponin I 0.04 ng/mL (<0.03)
[2019-12-16] MEDS ORDERED: Acetaminophen TAB* 325 MG PO PRN (16:45)
[2019-12-16] MEDS ORDERED: Al Hydrox/Mg Hydrox/Simet LIQ* 30 ML UDC PO PRN (16:45)
[2019-12-16] MEDS ORDERED: cefTRIAXone(*) 1 GM in NS 0.9% 50 ML* 50 ML IVPB ONE (17:30)
[2019-12-16] MEDS ORDERED: cefTRIAXone(*) 1 GM ADVAN/BAG ONE (17:46)
--- NOTE | 2019-12-16 17:58 | HP ---
CC: Dr. Saravia; Dr. Lawrence* HISTORY AND PHYSICAL: DATE OF ADMISSION: 12/16/19 PRIMARY CARE PROVIDER: Dr. Saravia. CHIEF COMPLAINT: Status post fall, unable to move right leg due to pain. HISTORY OF PRESENT ILLNESS: Ms. Handy is an 89-year-old female who is originally Mandarin-speaking only, who is here with her daughter by the bedside translating. The patient has history of dementia. She is supposed to walk with a cane, but she has not been using it frequently. She fell a couple of days ago and felt fine, but last night she got up to have a glass of water, fell and was unable to get up, complaining of right hip pain. Here, she was noted to have right acetabular fracture and pelvic fracture. She is going to be placed on overnight observation. As per discussion between the ED provider and Dr. Lawrence, it was decided that the patient likely will not require surgical intervention for her fracture. PAST MEDICAL HISTORY: 1. COPD, not oxygen dependent. 2. Constipation. 3. Osteoporosis. 4. Palpitations. 5. Dementia. MEDICATIONS AT HOME: 1. Multivitamin 1 tablet daily. 2. Lidex cream 1 application b.i.d. p.r.n. 3. Calcium carbonate/vitamin D 1 tablet b.i.d. 4. Calcitriol 0.25 mcg daily. 5. Acetaminophen on a p.r.n. basis. ALLERGIES: No known drug allergies. FAMILY HISTORY: Reviewed and noncontributory. SOCIAL HISTORY: The patient immigrated to the "many years ago." Despite that, she does not really understand Frisian. She lives with her daughter, who is her surrogate. 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 Her daughter, Sharon Gregorio, is her surrogate together with her . The patient has no history of tobacco, alcohol, or drug use. REVIEW OF SYSTEMS: The patient's daughter noted some blood in her urine recently. The patient urinates frequently, but she denies any pain with urination. She denies any chest pain or shortness of breath. She has not had any fever. All the remaining 12 systems were reviewed with the patient and the patient's daughter and were otherwise negative. PHYSICAL EXAMINATION GENERAL: The patient is a pleasant 89-year-old female, who is in no acute distress. The patient is alert and oriented x2. VITAL SIGNS: Blood pressure 151/101, heart rate of 96 and regular, respiratory rate 16, oxygen saturation 96% on room air, temperature 98.8. HEENT: Head: Atraumatic, normocephalic. Eyes: Pupils are equal, reactive to light and accommodation. Oropharynx is clear. Mucosa moist. NECK: Supple. No JVD. No bruits bilaterally. RESPIRATORY: Clear to auscultation bilaterally. CARDIOVASCULAR: Regular rate and rhythm. No murmur. ABDOMEN: Soft, nontender. Bowel sounds present in all 4 quadrants. EXTREMITIES: There is no edema. Pulses are +2 bilaterally. No clubbing or cyanosis. NEUROLOGIC: Speech is clear. Cranial nerves II through XII grossly intact. Motor strength is 5/5 bilaterally. Please note that the patient's range of motion in the right hip is limited due to severe pain that is precipitated by trying to flex her right hip. SKIN: On evaluation of the skin, no ecchymotic areas or rashes noted. DIAGNOSTIC STUDIES/LAB DATA: Urinalysis positive for blood, ketones, urobilinogen, esterase, rbc's +2. CBC: White blood cell count of 10.1, hemoglobin of 13.6, hematocrit of 40, and platelets of 150. Sodium was 135, potassium 3.4, chloride 101, carbon dioxide 27, BUN was 17, creatinine 0.62. Liver function tests were unremarkable. Troponin of 0.04. Pelvis CT, impression: "Shortening of the neck of the right humerus. Fracture of the superior pubic rami as it joins the ileum. No definite intraarticular fracture noted. There is also nondisplaced fracture through the inferior pubic ramus. The fracture through the right superior pubic ramus is all the way to the junction of the acetabulum." Portable chest x-ray, impression: "Stigmata of obstructive lung disease and probable pulmonary arterial hypertension. No acute cardiopulmonary process is evident." The patient's EKG showed sinus rhythm with a heart rate of 91 beats per minute with tachycardia with no ST changes. ASSESSMENT AND PLAN: 1. The patient is an 89-year-old female with history of dementia, who presents status post a fall with right pubic fractures and acetabular fracture. At this point, the treatment would rather be conservative. At this point, I briefly discussed the case with Dr. Lawrence, who stated that the patient can be weightbearing on the right. Due to that, PT and OT are going to be asked to evaluate the patient for ability to go home. For the time being, the patient is going to be placed on observation and Dr. Lawrence will see the patient in consultation. 2. The patient's troponin is mildly elevated. I suspect this is mild demand ischemia. She complains of no chest pain and no shortness of breath. We will follow with troponins and place her on 24 hours telemetry. 3. The patient's code status is full and that was discussed with the patient's daughter, who is considering another option. MOLST form was presented to the daughter who is once again thinking about limitations of resuscitation, but requested not to do it for the time being until she discusses with her family. 4. For DVT prophylaxis, the patient is going to be placed on heparin subcutaneously. TIME SPENT: Approximately 55 minutes was spent on admission of this patient, more than half that time was spent [id number] with the patient during the interview and physical exam. [id number]/[facility] #: [id number] JERRELL
[2019-12-16] MEDS: Docusate CAP* 100 MG PO SCH (20:28)
[2019-12-16] MEDS: Heparin VIAL(*) 5000 UNITS/ML VIAL (FIVE THOUSAND) SUBCUT SCH (20:28)
[2019-12-17 01:48] LABS: Troponin I 0.04 ng/mL (<0.03)
[2019-12-17 07:15] LABS: ABS Eosinophils 0.1 10^3/ul (0-0.6); ABS Lymphocytes 0.6 10^3/ul (1.0-4.8); ABS Monocytes 0.5 10^3/ul (0-0.8); ABS Neutrophils 5.5 10^3/ul (1.5-7.7); Eosinophil % 1.2 %; Hematocrit 37 % (35-47); Hemoglobin 12.6 g/dL (12.0-16.0); Lymphocyte % 8.5 %; Mean Corpuscular HGB Conc 34 g/dL (31-36); Mean Corpuscular Hemoglobin 31 pg (27-31); Mean Corpuscular Volume 92 fL (80-97); Mean Platelet Volume 7.7 fL (7.4-10.4); Platelet Count 135 10^3/uL (150-450); Red Blood Count 4.04 10^6 /uL (3.70-4.87); Red Cell Distribution Width 14 % (10-15); White Blood Count 6.7 10^3/uL (3.5-10.8)
[2019-12-17] MEDS: Heparin VIAL(*) 5000 UNITS/ML VIAL (FIVE THOUSAND) SUBCUT SCH (07:17)
[2019-12-17 07:27] LABS: Calcium 8.6 mg/dL (8.6-10.3); Potassium 3.4 mmol/L (3.5-5.0)
[2019-12-17 07:33] LABS: BUN/Creatinine Ratio 31.5 (8-20); EGFR African American 129.2 (>60); EGFR Non-African American 106.8 (>60)
[2019-12-17] MEDS: Docusate CAP* 100 MG PO SCH (07:54)
[2019-12-17] MEDS ORDERED: Calcitriol CAP* 0.25 MCG PO SCH (09:00)
--- NOTE | 2019-12-17 10:42 | CONSULT ---
Consult Consult: HPI: The patient is an 89 year old female, she presenting to [facility] with a chief complaint of a fall. Her daughter is her general scrap worker. She states that she was going to get some water from the tap when she felt unsteady and went to sit down , she did not sit on a chair and fell onto the floor in a sitting position. This fall occurred on 12/13/2019. The pts family got her into bed with the hopes that her pain would improve. She did not improve and yesterday she was brought into the ER. She states that she does have buttock pain, no groin pain bilaterally, no other joint pain. Allergies Allergy/AdvReac Type Severity Reaction Status Date / Time No Known Allergies Allergy Verified 04/03/19 21:33 Home Medications: Home Medications Calcitriol CAP* [Rocaltrol CAP*] 0.25 mcg PO DAILY 04/03/19 [History Confirmed 12/16/19] Acetaminophen TAB* [Tylenol TAB*] 650 mg PO Q4H PRN 12/16/19 [History Confirmed 12/16/19] Calcium Carbonate/Vitamin D3 [Calcium 600+D High Potenc] 1 tab PO BID 12/16/19 [ History Confirmed 12/16/19] Fluocinonide 0.05% CM (NF) [Lidex 0.05% CREAM (NF)] 1 applic TOPICAL BID PRN [History Confirmed 12/16/19] Multivitamins/Minerals TAB* [Theragran/minerals TAB*] 1 tab PO DAILY 12/16/19 [ History Confirmed 12/16/19] PMH Chronic Obstructive Pulmonary Disease (COPD) Osteoporosis Surgical History Right shoulder replacement. Right hip fracture surgery Family History Negative: Cardiac Disease Social History Alcohol Use: None Substance Use Type: Reports: None Smoking Status (MU): Never Smoked Tobacco Review of Systems: Pt denies any fevers, chills or night sweats Pt denies any chest pain, SOB Pt denies any palpitations Pt denies any nausea or vomiting Physical Exam: Vital Signs Temp 98.2 F 12/17/19 03:36 Pulse 104 12/17/19 03:36 Resp 18 12/17/19 03:36 BP 145/74 12/17/19 03:36 Pulse Ox 100 12/17/19 03:36 Intake & Output 12/16/19 12/17/19 12/17/19 18:59 06:59 18:59 Intake Total 555 240 Output Total 150 Balance 405 240 Weight 125 lb 141 lb 11.2 oz Intake: IV Fluids 500 IVPB 55 Oral 0 240 Output: Urine 150 Other: # Bowel Movements 0 # Voids 0 Constitutional: Well-developed, Well-nourished, Alert, Cooperative Skin: Warm, Dry HENT: Normocephalic; Atraumatic Musculoskeletal: Full ROM and no tenderness at ankles, knees, shoulders, elbows. ; No joint swelling. Pelvis is stable to lateral compression and rock. Right hip pain with 90 degrees of flexion and IR. Just flexion is not painful for the pt. No left hip pain with movement. Calves are soft and non tender. No gross deformity. Good pedal pulses. Psych: Mood and affect Normal CT PELVIC CT IMPRESSION: Fracture of the superior pubic rami just as it joins the ilium. No definite intra-articular fracture is noted. There is also nondisplaced fracture through the inferior pubic ramus. ASSESSMENT: Right superior and possible inferior pubic rami fracture PLAN: 1. WBAT, she can start PT 2. Pt encouraged to use inflatable donut or pillow if sitting down for comfort 3. Pt will need to have repeat xray of her pelvis once she is ambulating.
[2019-12-17] MEDS ORDERED: Potassium Chlor TAB* 10 MEQ TAB.ER PO ONE (11:26)
[2019-12-17 11:50] VITALS: BP 140/75
--- NOTE | 2019-12-17 16:30 | DS ---
CC: Dr. Saravia; Dr. Lawrence, Orthopedic Surgery * DISCHARGE SUMMARY: DATE OF ADMISSION: 12/16/19 DATE OF DISCHARGE: 12/17/19 PRIMARY CARE PROVIDER: Dr. Saravia. DISPOSITION AT DISCHARGE: Home. CONDITION AT DISCHARGE: Stable. DISCHARGE DIAGNOSES: 1. Status post fall with right-sided pelvic bone fractures. 2. Troponin of 0.03, likely due to demand. 3. Likely urinary tract infection with abnormal urinalysis and mild hematuria. SECONDARY DIAGNOSES: 1. Mild dementia. 2. Chronic obstructive pulmonary disease, not oxygen dependent. 3. History of osteoporosis. MEDICATIONS AT DISCHARGE: Include: 1. Cefdinir 300 mg b.i.d. for total of 3 days. 2. Acetaminophen 500 mg every 4 hours p.r.n. pain. 3. Ibuprofen 400 mg every 6 hours p.r.n. severe pain. 4. Calcium carbonate and vitamin D 1 tablet b.i.d. 5. Calcitriol 0.25 mcg daily. 6. Acetaminophen on p.r.n. basis. CONSULTATIONS DURING THE HOSPITAL STAY: Included Dr. Lawrence from Orthopedic Surgery. DIAGNOSTIC STUDIES/LAB DATA: Laboratory data during the hospital stay included : On 12/17/19, white blood cell count of 6.7, hemoglobin of 12.6, hematocrit of 37, and platelets of 135. Sodium of 135, potassium 3.4, chloride 104, carbon dioxide 23, BUN 17, creatinine 0.54. Troponin raised from 0.01 to 0.04. Urinalysis showed trace protein, +2 blood, positive for urobilinogen, and positive for esterase as well as epithelial cells. Urine cultures are pending at the time of dictation. Pelvic CT obtained at admission, impression: "Shortening of the neck of the right humerus. Fracture of the superior pubic rami just as it joins the ilium. No definite intraarticular fractures noted. There is also nondisplaced fracture through the inferior public ramus. The patient is status post anterior fixation of an old femoral neck fracture." Portable chest x-ray performed at admission, impression: "Stigmata of obstructive lung disease and probable pulmonary arterial hypertension. No acute cardiopulmonary process is evident." HOSPITALIZATION COURSE: Mrs. Handy is an 89-year-old female with history of dementia who fell couple of days prior to family bringing her into the ED for intractable right hip pain. The patient is originally from [place] and does not speak [place]. Her daughter stayed with her throughout her hospital stay. Her daughter stated that the patient has history of some dementia, but she had been functional at home and ambulating with roller walker until her fall. The patient was noted to have pelvic bone fracture. She was seen by Dr. Lawrence and the physician research assistant professor, Viktor Kessler, who recommended for the patient to continue weightbearing as tolerated and physical therapy, and once the patient is ambulatory to do repeat pelvic bone x-rays. The patient was seen by our physical therapist today. She required 2 person assist to be able to walk minimally with the walker. Our physical therapist recommended a wheelchair as well as hospital bed and bedside commode to be arranged for discharge. The patient's family was recommended for the patient to stay longer to continue physical therapy, but they were anxious about the pandemic of coronavirus and they wished for the patient to go home as soon as possible. They requested for the patient to be discharged today. In addition to the above mentioned fall, the patient was noted to have mild hematuria and she has abnormal urinalysis. She herself is very vague about the symptomatology, but she is going to be placed on cefdinir for 3 days outpatient for presumed UTI. The patient was observed on telemetry monitoring bed for troponin of 0.04. It was likely due demand ischemia. The patient was asymptomatic from cardiac standpoint and her telemetry was discontinued. The patient is going to be discharged home with recommendation to follow up with her primary care provider in 4 to 7 days. It is recommended for her primary care provider to obtain pelvic bone x-rays once the patient is ambulatory. PHYSICAL EXAMINATION: At the time of discharge, blood pressure 140/75, heart rate of 88 and regular, respiratory rate 16, oxygen saturation 97% on room air, temperature of 97.9. General: The patient is very pleasant 89-year-old female who is in no acute distress. The patient is alert and oriented x2. Her daughter is translating. HEENT: Head atraumatic, normocephalic. Eyes: Pupils are equal, reactive to light and accommodation. Oropharynx is clear. Mucosa moist. Neck: Supple. No JVD. No bruits bilaterally. Cardiovascular: Regular rate and rhythm. No murmurs. Respiratory: Clear to auscultation bilaterally. Abdomen: Soft, nontender. Bowel sounds are present in all 4 quadrants. Extremities: There is no edema. Pulses are +2 bilaterally. No clubbing or cyanosis. On neuro evaluation, speech is clear. Cranial nerves II through XII are grossly intact. Motor strength is 5/5 bilaterally. Limitation of range of motion in the right hip is still evident on evaluation due to her known pelvic bone fracture. The patient is going to be discharged home with visiting nurse association physical therapy set up by our assistant case manager. She is recommended to follow up with Dr. Saravia in 4 to 7 days. At discharge, it is recommended for the primary care provider to obtain pelvic bone x-rays once the patient is ambulatory. The patient is to follow up with Dr. Lawrence on as needed basis. Please note this is a short summary of the patient's hospitalization. Please refer to further medical records for details. TIME SPENT: Approximately 35 minutes was spent in preparation of the patient's discharge. [id number]/CPS #: [id number] JERRELL
[2019-12-17] MEDS ORDERED: cefTRIAXone(*) 1 GM in NS 0.9% 50 ML* 50 ML IVPB SCH (17:00)
== END 2019-12-17 15:00 | disposition home or self-care (01) ==
LOC: ED 11:31 → MED 16:45
PROVIDERS: ADMIT Internal Medicine; ATTEND Internal Medicine
DX: S32.9XXA Fracture of unspecified parts of lumbosacral spine and pelvis, initial encounter for closed fracture (principal); W19.XXXA Unspecified fall, initial encounter; Y92.9 Unspecified place or not applicable; R31.9 Hematuria, unspecified; F03.90 Unspecified dementia, unspecified severity, without behavioral disturbance, psychotic disturbance, mood disturbance, and anxiety; J44.9 Chronic obstructive pulmonary disease, unspecified; M81.0 Age-related osteoporosis without current pathological fracture; Z79.899 Other long term (current) drug therapy; K59.00 Constipation, unspecified; R00.2 Palpitations
CPT/HCPCS: 36415; 71045; 72192; 80048; 80053; 81003; 81015; 84484; 85025; 85610; 85730; 87077; 87086; 93005; 96365; 96372; 99284; A9270-GY; G0378; J0696; J1644